=== PATIENT | male | born 1940 | race Caucasian/White ===

== ENCOUNTER → 2021-07-21 | Outpatient (CLI) | payer MEDICARE ==
[2014-01-16 08:34] VITALS: BP 107/58
[~2021-07-21] MED LIST: AMLO-186 PO; ASPI-482 PO; CALC-112 PO; CELE400C PO; CINN500C2 PO; FERR325T3 PO; GLUC100018 PO; IBUP200T58 PO; LISI1TAB39 PO; LORA10TA68 PO; METO50TA6 PO; MULT-658 PO; OMEG1CAP27 PO; Oxycodone Hcl/Acetaminophen PO; POTA99TA PO; SIMV20TA18 PO; VIT1CAPS12 PO; WARF5TAB2 PO; Warfarin Sodium MC
--- NOTE | 2021-07-21 08:08 | RAD ---
Examination: Bilateral Lower Extremity Venous Doppler Ultrasound History: Bilateral lower extremity edema Comparison: None Procedure: Mao scale, color flow 2D and spectal waveform analysis images are obtained with and witho ut compression in the area of the common femoral vein, superficial femoral vein - femoral vein juncti on, main femoral vein (superficial femoral vein) and popliteal vein. Veins of the proximal calf are a lso imaged. Findings: There is normal duplex flow, color flow and compressibility of all visualized vein segments. No evide nce of deep venous thrombus is present. Impression: No evidence of DVT in the bilateral lower extremity venous system. Electronically signed by: Yazan Rothman MD (07/21/2021 8:05 AM) [id number]
== END ==
LOC: US 06:30
PROVIDERS: ATTEND Internal Medicine
DX: R60.0 Localized edema (principal); M79.661 Pain in right lower leg; M79.662 Pain in left lower leg
CPT/HCPCS: 93970